=== PATIENT | male | born 1980 | race Caucasian/White ===

== ENCOUNTER 2017-04-10 08:48 | Outpatient (CLI) | payer OTHER ==
--- NOTE | 2017-04-10 16:22 | MRI Report ---
EXAM: MRI THORACIC SPINE WITHOUT CONTRAST EXAM DATE: 04/10/2017 10:27 AM. CLINICAL HISTORY: Chronic neck and upper back pain. Right-sided thoracic pain. COMPARISONS: MRI cervical spine same day. TECHNIQUE: Multiplanar, multisequence T1-weighted and fluid-sensitive sequences of the thoracic spine from C7 to L1 without contrast. Other: None. FINDINGS: The ascending thoracic aorta is prominent and measures up to 4 cm. No suspicious marrow replacement is present in the thoracic vertebral bodies. No abnormal signal is s een in the thoracic spinal cord. No focal posterior disk protrusions are present in the thoracic spin e. Posterior bulging of the annulus is present from T8 through T12. At T12-L1 there is a minimal subligamentous central disk protrusion. No central canal or foraminal stenosis. Degenerative Schmorl's nodes formation is seen from T6 through T12. No posterior interspinous ligament edema is present. IMPRESSION: 1. A minimal subligamentous central disk protrusion is seen at T12-L1. 2. Multilevel Schmorl's node formation in the mid and lower thoracic spine raise the possibility of S cheuermann's disease. 3. No central canal or foraminal stenosis is present in the thoracic spine. 4. The ascending thoracic aorta is at the upper limits of normal in size. Dedicated MRA of the thorac ic aorta may be of value [facility] Referring Provider Line: [phone] SITE ID: [id number]
--- NOTE | 2017-04-10 16:22 | MRI Report ---
EXAM: MRI CERVICAL SPINE WITHOUT CONTRAST EXAM DATE: 04/10/2017 10:01 AM. CLINICAL HISTORY: Chronic neck and upper back pain. Neck stiffness. Some numbness and tingling. COMPARISONS: MRI thoracic spine from today. TECHNIQUE: Multiplanar, multisequence T1-weighted and fluid-sensitive sequences of the cervical spine without contrast. Other: None. FINDINGS: On the last image of the study there is a 4-5 mm short axis soft tissue nodule incompletely visualize d anterior to the longus colli muscle on the right in the retropharyngeal fat. This could reflect a b orderline retropharyngeal lymph node. No suspicious marrow replacement is identified in the cervical vertebral bodies. No abnormal signal i s present in the cervical spinal cord. Slight gentle reversal of the normal cervical lordosis is present centered over C4. No posterior interspinous ligament edema is present in the cervical spine. Minimal uncovertebral joint spurring is seen at C5-C6. IMPRESSION: 1. No focal posterior disk protrusions are present. 2. Minimal uncovertebral joint spurring at C5-C6. 3. No abnormal signal is present in the cervical spinal cord. [facility] Referring Provider Line: [phone] SITE ID: [id number]
== END 2017-04-10 08:49 | disposition home or self-care (01) ==
LOC: DI 08:48
PROVIDERS: ATTEND General Practice
DX: M51.25 Other intervertebral disc displacement, thoracolumbar region (principal); M51.44 Schmorl's nodes, thoracic region
CPT/HCPCS: 72141; 72146

== ENCOUNTER 2019-11-17 08:47 | Day surgery (SDC) | payer OTHER ==
[2019-11-17] MEDS ORDERED: KETOROLAC 30 MG/ML VIAL IVP ONE (08:48)
[2019-11-17] MEDS ORDERED: fentaNYL 100 MCG/2 ML VIAL IVP ONE (08:48)
[2019-11-17] MEDS ORDERED: PROPOFOL 200 MG/20 ML VIAL IVP ONE (08:48)
[2019-11-17] MEDS ORDERED: LIDOCAINE-MPF 2% 5 ML VIAL IM ONE (08:48)
[2019-11-17] MEDS ORDERED: ONDANSETRON 4 MG/2 ML VIAL IVP ONE (08:48)
[2019-11-17] MEDS ORDERED: MIDAZOLAM 2 MG/2 ML VIAL IVP ONE (08:48)
[2019-11-17] MEDS ORDERED: DEXAMETHASONE 4 MG/ML VIAL IVP ONE (08:48)
[2019-11-17] MEDS ORDERED: LACTATED RINGERS 1,000 ML IV ONE (08:53)
[2019-11-17] MEDS ORDERED: CEFAZOLIN SODIUM IN 0.9 % NACL 2 GM/100 ML BAG IV ONE (08:57)
--- NOTE | 2019-11-17 09:21 | ANESTHESIA ---
Pre-Anesthesia VS, & Labs - Diagnosis left 5th metacarpal fracture - Procedure left 5th metacarpal fracture perc pinning vs ORIF Vital Signs: Temp Pulse Resp BP Pulse Ox 36.2 C L 66 18 131/94 H 98 11/17/19 09:03 11/17/19 09:03 11/17/19 09:03 11/17/19 09:03 11/17/19 09:03 Height 6 ft Weight (kg) 90.72 kg - NPO >8 hours Home Medications and Allergies Home Medications: Ambulatory Orders Multivitamin 1 each PO 11/13/19 Multivitamin 1 each PO 11/13/19 Allergies/Adverse Reactions: Allergies Allergy/AdvReac Type Severity Reaction Status Date / Time No Known Drug Allergies Allergy Verified 11/13/19 08:06 Anes History & Medical History - Anesthetic History Family history of Anesthesia Complications: Denies Family history of Malignant Hyperthermia: Denies - Medical History Cardiovascular: reports: None Pulmonary: reports: None Gastrointestinal: reports: None Urinary: reports: None Neuro: reports: None Musculoskeletal: reports: None Endocrine/Autoimmune: reports: None Blood Disorders: reports: None Skin: reports: None Smoking Status: Never smoker Psychosocial: reports: No issues indicated Exam General: Alert, Oriented x3, Cooperative, No acute distress Dental: WNL Mouth Openin Fingerbreadth Neck Mobility: Normal Mallampati classification: I Thyromental Distance: greater than 6 cm Respiratory: Lungs clear, Normal breath sounds, No respiratory distress, No accessory muscle use Cardiovascular: Regular rate, Normal S1, Normal S2, No murmurs Mental/Cognitive Status: Alert/Oriented X3, Normal for patient Plan Anesthesia Type: General Consent for Procedure(s) Verified and Reviewed: Yes Code Status: Attempt Resuscitation ASA classification: 1-Healthy patient Is this case an emergency?: No
[2019-11-17] MEDS ORDERED: BUPIVACAINE 0.25% PF 30 ML VIAL ONE (09:51)
[2019-11-17] MEDS ORDERED: NALOXONE 0.4 MG/ML VIAL IVP PRN (10:37)
[2019-11-17] MEDS ORDERED: HYDROmorphone 0.5 MG/0.5 ML SYRINGE IVP PRN (10:37)
[2019-11-17] MEDS ORDERED: fentaNYL 100 MCG/2 ML VIAL IVP PRN (10:37)
[2019-11-17] MEDS ORDERED: ATROPINE ABBOJECT 1 MG/10 ML SYRINGE IVP PRN (10:37)
[2019-11-17] MEDS ORDERED: ONDANSETRON 4 MG/2 ML VIAL IVP PRN ×2 (10:37→11:54)
[2019-11-17] MEDS ORDERED: LACTATED RINGERS 1,000 ML IV SCH (11:00)
[2019-11-17] MEDS ORDERED: BUPIVACAINE 0.25% PF 30 ML VIAL SUBQ ONE (11:17)
[2019-11-17] MEDS ORDERED: oxyCODONE 5 MG TABLET PO PRN (11:54)
--- NOTE | 2019-11-17 12:10 | OPERATIVE REPORT ---
Operative Report - General Procedure Date: 11/17/19 - Other Other Information/Narrative: Date of Procedure: 17 November 2019 Planned Procedure: Left fifth metacarpal closed reduction and percutaneous pinning versus open reduction and internal fixation Pre-op diagnosis: Left fifth metacarpal neck fracture Procedure performed: Left fifth metacarpal closed reduction and percutaneous pinning Post-op diagnosis: Left fifth metacarpal neck fracture Primary Surgeon: ABI GREER Secondary Surgeon: RAYRAY PRAJAPATI Anesthesia: General LMA EBL: 5 ml Tourniquet: Not used Specimen(s) Information: None Complication(s): None Condition: Stable to recovery Indications for Surgery: The patient is a 39-year-old right hand dominant male with a left fifth metacarpal neck fracture sustained while catching his toddler from falling near was a rodriguez. He reports hyper abduction of the small finger with immediate pain and swelling. Radiographs demonstrated an oblique fracture of the fifth metacarpal neck with approximately 8 to 10 mm of shortening. Based on the fracture shortening, we discussed treatment options with a recommendation for operative reduction and fixation. We discussed that any form of closed reduction without internal fixation or percutaneous pinning would likely settle back to the current orientation of the fracture fragments, as I be unable to hold the reduction using a cast or splint. We discussed the possible need to open the fracture should the fracture fail to reduce. Risks of surgery were discussed to include bleeding, infection, postoperative stiffness, implant complications, pin tract infections, loss of reduction, need for further procedures procedures, damage to nerves, vessels, tendons, ligaments, bone and cartilage and anesthesia complications to include medication side effects and allergic reactions and even . After discussion, he wished to proceed. Findings: Left fifth metacarpal neck fracture Descriptions of Procedure: The patient was met in the Preoperative Holding Area, at which time preoperative paperwork was confirmed. The left hand and elbow and splint was signed. The patient was then brought to Main Operating Room, placed supine on the Operating Room table, at which time pre procedure timeout was conducted to confirm correct patient, correct extremity and correct procedure and also to confirm presence and sterility of all required equipment and to confirm that antibiotics were being administered in the form of 2g of intravenous Ancef. After this was confirmed, general anesthesia was induced. The operative extremity was then prepped and draped over a hand table in the normal sterile fashion after a well- padded tourniquet was placed on the proximal arm. A final timeout was conducted to confirm the correct patient, correct extremity and correct procedure and to confirm that antibiotics had been administered within 30 minutes of incision time. The fracture was reduced under fluoroscopic guidance with a combination of longitudinal traction and lateral pressure on the fifth metacarpal shaft. Zack pite these maneuvers, we are unable to get appropriate goodwin in of the fracture fragments. The decision was made to make a small transverse incision overlying the fracture in the distal palmar crease, the incision was made, bluntly dissected using mosquito hemostats to the level of the flexor tendons, and then a [place] elevator was introduced to assist with reduction. The combination of [place], longitudinal traction, and pressure on the metacarpal shaft enabled satisfactory reduction, this was held in place with a 0.45 inch K wire placed from dorsal ulnar to volar radial. A second pin was placed in similar fashion. Reduction was then verified under multiplanar fluoroscopy. Although the reduction was held by these 2 wires, I was concerned that the second wire placed did not have excellent purchase, and then a third wire was placed from proximal to distal, and dorsal ulnar to volar radial, crossing the other 2 wires. Fracture reduction and alignment was confirmed again using multiplanar fluoroscopy, and once satisfied, the wires were cut at the level of the skin to bury them. Final fluoroscopic images were obtained. The palmar incision was irrigated and closed with a single 3-0 nylon horizontal mattress suture. 20 mL of quarter percent Marcaine plain was injected palmarly and dorsally around the fracture site for postoperative analgesia. The incision and K wire holes were c overed with Xeroform, followed by 4 x 4 gauze and web roll, and then a plaster ulnar gutter splint was placed in intrinsic plus position. The drapes were taken down, the patient was then awakened from general anesthesia without complication, brought to the Post Anesthesia Care for further recovery. Postoperative Plan: 1. The patient will be discharged from the Same Day Surgery Unit when discharge criteria are met. 2. The patient will remain in a splint for approximately 14 days until follow- up, this will be removed in clinic to facilitate early range of motion. 3. Expect return to full duty in 12-16 weeks 4. Discharge precautions were provided in both verbal and written form to the patient
[2019-11-17] MEDS ORDERED: oxyCODONE 5 MG TABLET ONE (12:31)
[2019-11-17 12:42] VITALS: BP 110/83
--- NOTE | 2019-11-17 15:19 | ANESTHESIA POST OP EVALUATION ---
Anesthesia Post Eval - Post Anesthesia Eval Vitals: Last Vital Signs Temp 36.1 C L 11/17/19 12:41 Pulse 70 11/17/19 12:41 Resp 15 11/17/19 12:41 BP 110/83 H 11/17/19 12:41 Pulse Ox 100 11/17/19 12:41 CV Function Including HR & BP: positive: Stable Pain Control: positive: Satisfactory Nausea & Vomiting: positive: Negative Mental Status: positive: Baseline Respiratory Status: Airway Patent Hydration Status: Satisfactory Anesthesia Complications: positive: None
== END 2019-11-17 08:48 | disposition home or self-care (01) ==
LOC: SDS 08:47
PROVIDERS: ATTEND Orthopaedic Surgery
DX: S62.337A Displaced fracture of neck of fifth metacarpal bone, left hand, initial encounter for closed fracture (principal); X50.0XXA Overexertion from strenuous movement or load, initial encounter; Y92.828 Other wilderness area as the place of occurrence of the external cause; Y99.8 Other external cause status

== ENCOUNTER 2019-12-24 20:33 | Outpatient (CLI) | payer OTHER | END 2019-12-24 20:34 | disposition home or self-care (01) | LOC: SC 20:33 | PROVIDERS: ATTEND Nurse Practitioner Family | DX: G47.8 Other sleep disorders (principal); G47.61 Periodic limb movement disorder | CPT/HCPCS: 95810 ==

== ENCOUNTER 2020-01-05 13:13 | Outpatient (CLI) | payer OTHER ==
--- NOTE | 2020-01-05 13:50 | SLEEP CARE CONSULTATION ---
Information from patient questionnaire entered by Elisabeth Michel. I have reviewed and concur with the information entered by Elisabeth Michel. This document represents the service I personally performed and the decisions made by , Argenis Vazquez ARNP. History of Present Illness Service Date and Time: 01/05/2020 1313 Initial [place] Sleepiness Scale score: 16 (in 2020) Current [place] Sleepiness Scale score: 12 Additional HPI information: MAURILIO MCKEON returns for follow up and results of the recently performed polysomnography. I explained the pathophysiology behind obstructive sleep apnea. We then spent quite a bit of time discussing different treatment options. For mild obstructive sleep apnea, surgery and oral appliance are alternatives to nasal CPAP therapy but in moderate or severe cases, nasal CPAP is the most effective and reliable treatment. Because apnea is primarily in supine position, then positional management therapy could be effective. Methods discussed such as positioning with pillows, using a T-shirt with tennis balls in the back, and shown commercial products that have a pillow format on back to prevent supine sleep. I reviewed the impact of weight changes on sleep apnea and strongly recommended losing weight. After some discussion, the patient opted to go with an oral appliance. Patient counseled not drink alcohol less than 4 hours before bedtime as it can increase snoring and apnea. Patient was cautioned about risks of drowsy driving until sleepiness symptoms resolve. Sleep Study - Results Type of Sleep Study: Polysomnography Prior sleep studies: No Polysomnography/Home Sleep Study results: IMPRESSION: The quality of the study is good. The patient had normal sleep efficiency. Except for mild sleep fragmentation, the sleep architecture was normal as well.. Respiratory monitoring showed some evidence of sleepdisordered breathing (AHI = 4.5 and RDI = 7.3) but not hypoxia (loren oxygen saturation of 92%). The respiratory events occurred almost exclusively during supine sleep (supine AHI = 6.8; non- supine = 0.00). Snore was moderate in intensity. There was mild periodic leg movement of sleep contributing to the sleep fragmentation. Cardiac rhythm was normal sinus rhythm without significant arrhythmia. No abnormal behavior (parasomnia) observed during the night. Allergies and Home Medications Drug allergies reviewed: Yes (NKDA) Home medication list reviewed: Yes (no changes) Review of Systems Review of systems same as previous: Yes (no changes) Physical Exam Heart Rate: 67 O2 Saturation: 98 Height: 6 ft Weight: 207 lb Body Mass Index: 28.0 BMI Classification: Overweight Impression and Plan 1. Upper Airway Resistance Syndrome, AHI 4.5 and RDI 7.3, with lowest oxygen saturation of 92%. This is the possible cause of the patients symptoms of unre freshed sleep, and excessive daytime sleepiness. Positive pressure therapy could benefit his overall health and reduce risk for cardiovascular events or cerebrovascular events. After some discussion, the patient would like to go with the oral appliance but is unsure about them covering his appliance. AAS non PAP treatment patient education reviewed and given to patient with list of accredited dentists and one non-accredited dentist in [facility] area to call for a consult. A prescription was given to start process. Patient advised to check insurance to see if oral appliance is covered. I will have patient follow up in 3 months to check effectiveness of treatment. If reduction of symptoms and comfortable with treatment, a polysomnography will be ordered using the oral appliance to check efficacy of treatment. After talking to our discharge federal appellate law clerk patient decided he would like to go with the CPAP therapy after all because of concern for insurance covering dental appliance. I will start him on 4-15 cm H2O and a prescription written and will be sent off to the DME of his choice. I will have him follow up in about a month after receiving his CPAP machine to evaluate for effectiveness and compliance. Compliance parameters reviewed with patient during the visit during explanation of CPAP therapy. 2. Periodic limb movement, mild, that did affect the fragmentation of the patients sleep. Periodic limb movement of sleep (PLMS) is characterized by episodes of repetitive limb movements that occur during sleep and usually involve the lower limbs. The etiology is unknown but can be associated with restless leg syndrome (RLS), neuropathy, spinal cord diseases, kidney disease, rheumatological disorders, narcolepsy, obstructive sleep apnea, and REM sleep behavior disorder. Other factors that can increase PLMS and/or RLS are heredity and iron deficiency as reflected by a low serum ferritin level below 50 to 75mcg / L. Several medications can precipitate or aggravate PLMS such as selective serotonin re-uptake inhibitor antidepressants, tricyclic antidepressants, lithium, and dopamine receptor antagonists with the exception of bupropion. Caffeine can also aggravate PLMS and should be avoided. Sleep hygiene methods can also improve sleep as well as lifestyle changes such as regular exercise. Patient was advised that no treatment is needed at this time. If symptoms increase, then further evaluation is indicated. * Start autoCPAP therapy at 4-15 cm H2O * Patient to look into insurance coverage for oral appliance therapy and contact us if he can change to this therapy. * Attempt to lose weight. * Avoid alcohol consumption near bedtime. * Avoid supine sleep until using CPAP. * The patient is again cautioned about driving until sleepiness completely re solves. * Return one month after CPAP obtained. I will assess response to therapy and compliance at that time. Visit Type: In Office Time Spent with Patient (minutes): 25 Provider Statement: I spent 100% of the Face to Face Visit with the patient with greater than 50% spent counseling the patient and coordination of care.
== END 2020-01-05 13:14 | disposition home or self-care (01) ==
LOC: SC 13:13
PROVIDERS: ATTEND Nurse Practitioner Family
DX: G47.8 Other sleep disorders (principal); G47.61 Periodic limb movement disorder; E66.3 Overweight; Z68.28 Body mass index [BMI] 28.0-28.9, adult
CPT/HCPCS: 99212; 99213

== ENCOUNTER 2020-03-03 08:02 | Outpatient (CLI) | payer OTHER ==
--- NOTE | 2020-03-03 08:43 | SLEEP CARE CONSULTATION ---
Information from patient questionnaire entered by Elisabeth Michel. I have reviewed and concur with the information entered by Elisabeth Michel. This document represents the service I personally performed and the decisions made by , Argenis Vazquez ARNP. History of Present Illness Service Date and Time: 03/03/2020 0802 Previous diagnosis: Other (RDI) AHI: 7.3 (in 2019) Reason for follow up: first compliance Equipment type: CPAP Equipment obtained from: [employer] (no supplies yet) Mask style: Nasal Backup mask available: No (keep old mask when replaced for backup) Last cushion change: over month Prior sleep studies: Yes Year and Where: 2019 - [facility] Type of Sleep Study: Polysomnography HPI additional information: MAURILIO MCKEON was diagnosed to have mild, AHI 4.5 with RDI 7.3, obstructive sleep apnea-hypopnea syndrome and returned today for CPAP therapy first compliance follow-up. CPAP Compliance Data - Data Reviewed with Patient Average duration of nightly device use: 7 hr 18 min Compliance rate %: 97 Current pressure setting (cmH2O): 4-15 (median 5.4 cm H2O, 95% 7.1 cm H2O, max 7.8 cm H2O) Humidity settin Average residual AHI: 1.6 Subjective Patient concerns: reports: air blowing in eyes (only when not laying on my back, just positional). denies: aerophagia, mask discomfort, mask leak noise, condensation in mask/hose, nasal congestion, dry mouth, nose, throat, epistaxis, other Observed to snore while using device: No Current pressure setting perceived as: comfortable On therapy, patient: reports: sleeping better, awakening more refreshed, being more awake and alert during the day, more rested overall, other (still has waking up due to pain in shoulder). denies: drowsiness while driving Initial [place] Sleepiness Scale score: 16 (in 2020) Current [place] Sleepiness Scale score: 8 Allergies and Home Medications Drug allergies reviewed: Yes (NKDA) Home medication list reviewed: Yes (no changes) Review of Systems Review of systems same as previous: Yes (no changes) Physical Exam Heart Rate: 66 O2 Saturation: 99 Height: 6 ft Weight: 206 lb Body Mass Index: 27.9 BMI Classification: Overweight Impression and Plan 1. Obstructive Sleep Apnea-Hypopnea Syndrome, mild, with good treatment compliance and good apnea control. On CPAP therapy, the patient has better sleep quality and is more rested overall. Patient has noted some air leaking into eyes with position changes. He is able to adjust it quickly without problems. Mask leaks predominately from when patient sleeps on their side can be reduced by using a CPAP pillow. A CPAP pillow sample was shown. This and other styles can be purchased online. Patient's apnea severity and rationale for treatment to reduce apnea, improve sleep quality and reduce cardiovascular and cerebro vascular events was reviewed. * Change auto CPAP pressure to 6-8 cmH2O * Notify me if snoring with mask or feeling that the pressure is too much or too little * Attempt to lose weight * Call this office if any problems using CPAP * Return for follow up in 1-2 months, or sooner if concerns arise Counseling Topics: Spare mask, Weight loss health impact Visit Type: In Office Time Spent with Patient (minutes): 22 Provider Statement: I spent 100% of the Face to Face Visit with the patient with greater than 50% spent counseling the patient and coordination of care.
== END 2020-03-03 08:03 | disposition home or self-care (01) ==
LOC: SC 08:02
PROVIDERS: ATTEND Nurse Practitioner Family
DX: G47.33 Obstructive sleep apnea (adult) (pediatric) (principal); E66.3 Overweight; Z68.27 Body mass index [BMI] 27.0-27.9, adult
CPT/HCPCS: 99212; 99213

== ENCOUNTER 2020-04-01 07:55 | Outpatient (CLI) | payer OTHER ==
--- NOTE | 2020-04-01 08:43 | SLEEP CARE CONSULTATION ---
Information from patient questionnaire entered by Elisabeth Michel. I have reviewed and concur with the information entered by Elisabeth Michel. This document represents the service I personally performed and the decisions made by , Argenis Vazquez ARNP. History of Present Illness Service Date and Time: 04/01/2020 0755 Previous diagnosis: Other (RDI ) AHI: 7.3 (in 2019) Reason for follow up: one month (with pressure change) Equipment type: CPAP Equipment obtained from: [employer] Mask style: Nasal Backup mask available: Yes (other mask) Last cushion change: within the week Prior sleep studies: Yes Year and Where: 2019 - [facility] Type of Sleep Study: Polysomnography HPI additional information: MAURILIO MCKEON was diagnosed to have mild, AHI 7.3 (RDI), obstructive sleep apnea-hypopnea syndrome and returned today for CPAP therapy one month pressure change follow-up. CPAP Compliance Data - Data Reviewed with Patient Average duration of nightly device use: 6 hr 38 min Compliance rate %: 83 Current pressure setting (cmH2O): 6-8 Humidity settin Average residual AHI: 2.1 Average large leak: 8.0 L/min Subjective Missed days of use due to: reports: other (sleepless baby) Patient concerns: reports: air blowing in eyes, mask leak noise (mask moving and not sealing well). denies: aerophagia, mask discomfort, condensation in mask/hose, nasal congestion, dry mouth, nose, throat, epistaxis, other Observed to snore while using device: No Current pressure setting perceived as: comfortable On therapy, patient: reports: sleeping better, awakening more refreshed, being more awake and alert during the day, more rested overall. denies: drowsiness while driving Initial [place] Sleepiness Scale score: 16 (in 2020) Current [place] Sleepiness Scale score: 11 Allergies and Home Medications Drug allergies reviewed: Yes (NKDA) Home medication list reviewed: Yes (no changes) Review of Systems Review of systems same as previous: Yes (no changes) Physical Exam Blood Pressure: 121/78 Cuff size: long Heart Rate: 64 O2 Saturation: 98 Height: 6 ft Weight: 216 lb Body Mass Index: 29.2 BMI Classification: Overweight Impression and Plan 1. Obstructive Sleep Apnea-Hypopnea Syndrome, mild, with good treatment compliance and good apnea control. On CPAP therapy, the patient has better sleep quality and is more rested overall. We are making no changes with his pressure today. He is having some issue with mask moving and getting air leak noises and in eyes. He would like to try a nasal pillows mask to see if this would move less with less leaking. I will write a script to try a nasal pillows mask and he will talk to his DME about getting one to try. Patient also needs a MWT for his job in the [employer]. I have already ordered this test and we are waiting on authorization from the insurance company. He will be notified once we have obtain the authorization to schedule the test. I will follow up with him after the test is completed. Patient's apnea severity and rationale for treatment to reduce apnea, improve sleep quality and reduce cardiovascular and cerebrovas cular events was reviewed. * Continue auto CPAP pressure at 6-8 cmH2O * Try nasal pillows mask * Notify me if snoring with mask or feeling that the pressure is too much or too little * Attempt to lose weight * Call this office if any problems using CPAP * Return for follow up after MWT, or sooner if concerns arise Counseling Topics: Spare mask, Weight loss health impact Visit Type: In Office Time Spent with Patient (minutes): 17 Provider Statement: I spent 100% of the Face to Face Visit with the patient with greater than 50% spent counseling the patient and coordination of care.
[2020-04-01 08:49] VITALS: BP 121/78
== END 2020-04-01 07:56 | disposition home or self-care (01) ==
LOC: SC 07:55
PROVIDERS: ATTEND Nurse Practitioner Family
DX: G47.33 Obstructive sleep apnea (adult) (pediatric) (principal); E66.3 Overweight; Z68.29 Body mass index [BMI] 29.0-29.9, adult
CPT/HCPCS: 99212; 99213

== ENCOUNTER 2020-04-28 06:47 | Outpatient (CLI) | payer OTHER | END 2020-04-28 06:48 | disposition home or self-care (01) | LOC: SC 06:47 | PROVIDERS: ATTEND Nurse Practitioner Family | DX: G47.33 Obstructive sleep apnea (adult) (pediatric) (principal) | CPT/HCPCS: 95805 ==

== ENCOUNTER 2020-04-28 08:00 | Outpatient (CLI) | payer OTHER ==
[2020-04-28 12:57] LABS: MUDS CUTOFF CONCENTRATIONS CUTOFF CONC BELOW:
[2020-04-28 13:10] LABS: AMPHETAMINE SCREEN,URINE NEGATIVE (NEGATIVE); BENZODIAZEPINES SCREEN, URINE NEGATIVE (NEGATIVE); COCAINE SCREEN URINE NEGATIVE (NEGATIVE); METHADONE SCREEN, URINE NEGATIVE (NEGATIVE); METHAMPHETAMINES SCREEN, URINE NEGATIVE (NEGATIVE); OPIATE SCREEN, URINE NEGATIVE (NEGATIVE); TRICYCLIC ANTIDEPRESSANT,URINE NEGATIVE (NEGATIVE)
[2020-04-28 13:11] LABS: OXYCODONE SCREEN, URINE NEGATIVE (NEGATIVE); PROPOXYPHENE SCREEN, URINE NEGATIVE (NEGATIVE)
== END 2020-04-28 23:58 | disposition home or self-care (01) ==
LOC: LAB.R 08:00
PROVIDERS: ATTEND Nurse Practitioner Family
DX: R41.82 Altered mental status, unspecified (principal)
CPT/HCPCS: 80306

== ENCOUNTER 2020-05-09 12:33 | Outpatient (CLI) | payer OTHER ==
--- NOTE | 2020-05-09 13:15 | SLEEP CARE CONSULTATION ---
Information from patient questionnaire entered by Elisabeth Michel. I have reviewed and concur with the information entered by Elisabeth Michel. This document represents the service I personally performed and the decisions made by me, Shannen Jacinto MD, [facility]. History of Present Illness Service Date and Time: 05/09/2020 1233 Previous diagnosis: Other (RDI ) AHI: 7.3 (in 2019) Reason for follow up: other (MWT ) Equipment type: CPAP Equipment obtained from: [employer] Mask style: Nasal Prior sleep studies: Yes Year and Where: 2019 - [facility] Type of Sleep Study: Polysomnography HPI additional information: HPI: Mr. Su returned for follow up of the maintenance of wakefulness test (MWT) he had on 04/28/2020. The test showed that he was awake throughout the four 40-minute sessions. Therefore, he does not appear to have any residual excessive daytime sleepiness. The patient was informed of these findings. I explained to him that the maintenance of wakefulness test (MWT) was normal. His CPAP compliance continues to show good treatment compliance with him using the device 27 out of the past 30 nights, averaging 6.4 hours a night. The > 4 hour compliance rate for the past 30 days is 77%. Sleep Study - Results Type of Sleep Study: Polysomnography (MWT) CPAP Compliance Data - Data Reviewed with Patient Average duration of nightly device use: 6 hr 27 min Compliance rate %: 77 Current pressure setting (cmH2O): 6-8 Average residual AHI: 1.7 Subjective Missed days of use due to: reports: mask issues, illness Patient concerns: reports: air blowing in eyes, mask leak noise Initial [place] Sleepiness Scale score: 16 (in 2019) Current [place] Sleepiness Scale score: 10 Allergies and Home Medications Drug allergies reviewed: Yes Home medication list reviewed: Yes Review of Systems Review of systems same as previous: Yes Physical Exam Vital signs obtained and entered by: To minimize the risk of COVID-19 exposure, detailed exam was not performed. Height: 6 ft Weight: 200 lb Body Mass Index: 27.1 BMI Classification: Overweight Impression and Plan IMPRESSION: 1. Upper Airway Resistance Syndrome (ICD-10 G47.8), mild, with no residual excessive daytime sleepiness on CPAP therapy. No further evaluation is necessary. PLAN: 1. Continue with CPAP set at 6 8 cmH2O. 2. Return for a follow up before me relocates away from [facility]. Visit Type: In Office Time Spent with Patient (minutes): 15 Provider Statement: I spent 100% of the Face to Face Visit with the patient with greater than 50% spent counseling the patient and coordination of care.
== END 2020-05-09 12:34 | disposition home or self-care (01) ==
LOC: SC 12:33
PROVIDERS: ATTEND Internal Medicine Pulmonary Disease
DX: G47.8 Other sleep disorders (principal); G47.33 Obstructive sleep apnea (adult) (pediatric); E66.3 Overweight; Z68.27 Body mass index [BMI] 27.0-27.9, adult
CPT/HCPCS: 99212

== ENCOUNTER 2020-05-16 13:00 | Outpatient (CLI) | payer OTHER ==
[2020-05-16] MEDS ORDERED: GADOBUTROL 7.5 MMOL/7.5 ML VIAL ONE ×2 (13:29→13:56)
[2020-05-16] MEDS ORDERED: BUFFERED LIDOCAINE 10 ML SYRINGE ONE (13:29)
[2020-05-16] MEDS ORDERED: BUFFERED LIDOCAINE 10 ML SYRINGE IU ONE (14:48)
[2020-05-16] MEDS ORDERED: iohexoL-240 10 ML VIAL IVP ONE (14:50)
[2020-05-16] MEDS ORDERED: GADOBUTROL 7.5 MMOL/7.5 ML VIAL IVP ONE (14:51)
--- NOTE | 2020-05-16 16:24 | XRAY Report ---
PROCEDURE: Arthrogram Needle Placement INDICATIONS: PAIN IN LT SHOULDER CONTRAST: CONTRAST: [id number] FLUOROSCOPY TIME: FLUORO TIME: 19 sec and NUMBER IMAGES: 4 TECHNIQUE: The indications, alternatives, benefits, risks, and complications of the procedure were explained to the patient. Written informed consent was obtained and placed in the chart. The shoulder was examin ed fluoroscopically and a site for needle placement chosen for entry into the glenohumeral joint from an anterior approach. The skin was prepped and draped in the usual fashion, and 1% lidocaine infilt rated from skin down to joint capsule. A spinal needle was inserted into the glenohumeral joint, and a small amount of iodinated contrast media injected to confirm intra-articular placement of the need le tip. This was followed by approximately 12 mL dilute solution of a gadolinium containing MR contr ast agent. The needle was removed and a dressing was applied. The patient was given postprocedural instructions and sent to the MR suite for MR imaging. FINDINGS: A single fluoroscopic spot image demonstrates intra-articular location of injected iodinated contrast . IMPRESSION: Successful fluoroscopically guided administration of dilute Gadolinium solution into the shoulder melanie nt for MR arthrogram. Reviewed by: Heidi Robert MD on 05/16/2020 4:22 PM PST Approved by: Heidi Robert MD on 05/16/2020 4:22 PM PST Station ID: [id number]
--- NOTE | 2020-05-16 18:32 | MRI Report ---
PROCEDURE: Arthrogram Shoulder LT INDICATIONS: PAIN IN LT SHOULDER CONTRAST: 12 mL of diluted intra-articular gadolinium contrast. TECHNIQUE: After the administration of 12 mL of dilute intra-articular Gadolinium contrast, oblique coronal T1 a nd T2 spin echo with fat saturation, oblique sagittal T1 spin echo with and without fat saturation, o blique sagittal T2 fast spin echo with fat saturation, axial T1 spin echo with fat saturation through the shoulder. COMPARISON: None. FINDINGS: Image quality: Excellent. Rotator cuff: Tendinosis and low-grade articular and bursal surface partial-thickness tear involving distal supraspinatus at its insertion on humeral head is seen extending to musculotendinous junction. The infraspinatus, and subscapularis tendons appear intact throughout. No rotator cuff muscle atrop hy on sagittal images. Bones and bursae: No bone marrow contusions or fractures. Mild acromioclavicular joint osteoarthriti c changes are seen with downward osteophyte formation depressing on musculotendinous junction of supr aspinatus.. The acromion demonstrates conventional anatomy, without an os acromiale. Capsule and soft tissues: The labrum and glenohumeral ligaments appear intact. The long head of the biceps tendon demonstrates normal location and morphology. The rotator interval appears normal, wit hout fibrosis. The coracohumeral ligament is of normal thickness. No intra-articular bodies. IMPRESSION: 1. Tendinosis and low-grade articular and bursal surface partial-thickness tear involving distal supr aspinatus extending to musculotendinous junction. No full-thickness rotator cuff tendon rupture. 2. Mild to moderate acromioclavicular joint osteoarthritis. 3. No evidence of focal labral tear. Reviewed by: Trever Canada MD on 05/16/2020 5:31 PM [place] Approved by: Trever Canada MD on 05/16/2020 5:31 PM [place] Station ID: [id number]
[2020-05-17] MEDS ORDERED: GADOBUTROL 10 MMOL/10 ML VIAL IVP ONE (22:04)
== END 2020-05-16 13:01 | disposition home or self-care (01) ==
LOC: DI 13:00
PROVIDERS: ATTEND Orthopaedic Surgery
DX: M75.112 Incomplete rotator cuff tear or rupture of left shoulder, not specified as traumatic (principal); M19.012 Primary osteoarthritis, left shoulder
CPT/HCPCS: 23350; 73222; 77002; A9585; Q9966

== ENCOUNTER 2020-07-01 06:26 | Day surgery (SDC) | payer OTHER ==
[2020-07-01] MEDS ORDERED: cefTRIAXone 2 GM VIAL ONE (06:29)
[2020-07-01] MEDS ORDERED: SODIUM CHLORIDE 0.9% 1,000 ML IV ONE (06:30)
[2020-07-01] MEDS ORDERED: LACTATED RINGERS 1,000 ML IV ONE ×2 (06:38→09:29)
[2020-07-01] MEDS ORDERED: ROPIVACAINE 0.5% PF 20 ML AMPULE ONE (07:02)
[2020-07-01] MEDS ORDERED: PROPOFOL 200 MG/20 ML VIAL IVP ONE (07:02)
[2020-07-01] MEDS ORDERED: LIDOCAINE-PF 2% 10 ML AMP SUBQ ONE (07:02)
[2020-07-01] MEDS ORDERED: ROCURONIUM 50 MG/5 ML VIAL ONE (07:03)
[2020-07-01] MEDS ORDERED: KETOROLAC 30 MG/ML VIAL ONE (07:03)
[2020-07-01] MEDS ORDERED: DEXMEDETOMIDINE 200 MCG/2 ML VIAL ONE (07:03)
[2020-07-01] MEDS ORDERED: ONDANSETRON 4 MG/2 ML VIAL ONE (07:03)
[2020-07-01] MEDS ORDERED: DEXAMETHASONE 4 MG/ML VIAL ONE (07:03)
[2020-07-01] MEDS ORDERED: SUGAMMADEX 200 MG/2 ML VIAL IVP ONE (07:03)
[2020-07-01] MEDS ORDERED: fentaNYL 100 MCG/2 ML VIAL ONE (07:20)
[2020-07-01] MEDS ORDERED: MIDAZOLAM 2 MG/2 ML VIAL ONE (07:20)
[2020-07-01] MEDS ORDERED: EPINEPHrine 1 MG/ML AMP ONE (07:22)
--- NOTE | 2020-07-01 07:25 | ANESTHESIA ---
Pre-Anesthesia VS, & Labs - Diagnosis Left Shoulder Pain - Procedure Left Shoulder Arthroscopy/Biceps/SLAP Vital Signs: Temp Pulse Resp BP Pulse Ox 36.2 C L 65 16 125/89 H 96 07/01/20 06:39 07/01/20 06:39 07/01/20 06:39 07/01/20 06:39 07/01/20 06:39 Height: 6 ft Weight (kg): 99.4 kg Body Mass Index: 29.7 BMI Classification: Overweight Home Medications and Allergies Home Medications: Ambulatory Orders No Known Home Medications 06/23/20 No Known Home Medications 06/23/20 Allergies/Adverse Reactions: Allergies Allergy/AdvReac Type Severity Reaction Status Date / Time No Known Drug Allergies Allergy Verified 11/13/19 08:06 Anes History & Medical History - Medical History Cardiovascular: reports: None Pulmonary: reports: Sleep apnea, CPAP use Gastrointestinal: reports: None Urinary: reports: None Neuro: reports: None Musculoskeletal: reports: Other Endocrine/Autoimmune: reports: None Blood Disorders: reports: None Skin: reports: None Smoking Status: Never smoker - Surgical History Orthopedic: reports: Other Exam General: Alert, Oriented x3, Cooperative, No acute distress Dental: WNL Mouth Openin Fingerbreadth Neck Mobility: Normal Mallampati classification: I Thyromental Distance: 4-6 cm Respiratory: Lungs clear, Normal breath sounds Cardiovascular: Regular rate Plan Anesthesia Type: General, Interscalene Block Regional Block: Per Surgeon's request for Post Op pain control Consent for Procedure(s) Verified and Reviewed: Yes Code Status: Attempt Resuscitation ASA classification: 1-Healthy patient Is this case an emergency?: No
[2020-07-01] MEDS ORDERED: ePHEDrine 50 MG/ML VIAL IVP PRN (08:13)
[2020-07-01] MEDS ORDERED: NALOXONE 0.4 MG/ML VIAL IVP PRN (08:13)
[2020-07-01] MEDS ORDERED: ATROPINE ABBOJECT 1 MG/10 ML SYRINGE IVP PRN (08:13)
[2020-07-01] MEDS ORDERED: fentaNYL 100 MCG/2 ML VIAL IVP PRN (08:13)
[2020-07-01] MEDS ORDERED: HYDROmorphone 0.5 MG/0.5 ML SYRINGE IVP PRN (08:13)
[2020-07-01] MEDS ORDERED: MORPHINE 2 MG/ML CARPUJECT IVP PRN (08:13)
[2020-07-01] MEDS ORDERED: METOCLOPRAMIDE 10 MG/2 ML VIAL IVP PRN (08:13)
[2020-07-01] MEDS ORDERED: ONDANSETRON 4 MG/2 ML VIAL IVP PRN ×2 (08:13→09:44)
[2020-07-01] MEDS ORDERED: EPINEPHrine 1 MG/ML AMP IR ONE (08:21)
[2020-07-01] MEDS ORDERED: BUPIVACAINE 0.25% PF 30 ML VIAL ONE (08:36)
[2020-07-01] MEDS ORDERED: LACTATED RINGERS 1,000 ML IV SCH (09:00)
[2020-07-01] MEDS ORDERED: oxyCODONE 5 MG TABLET PO PRN (09:44)
--- NOTE | 2020-07-01 09:52 | OPERATIVE REPORT ---
Operative Report - Other Other Information/Narrative: Date of Surgery: 01 July 2020 Pre-Op Diagnosis: Shoulder SLAP tear. Left shoulder subacromial bursitis and impingement Procedure: Left shoulder arthroscopy with SLAP debridement. Subacromial decompression Postop Diagnosis: Same Primary Surgeon: Lawrence Perales Secondary Surgeon: None Complications: None EBL: 5 cc IMPLANTS: None POSTOPERATIVE PLAN: 0-2 weeks-Sling at all times. Pendulum exercises 5 times per day. 2-6 weeks-Passive and active range of motion without limitations. 6-12 weeks-Gradually increase strengthening focusing on rotator cuff and scapular stabilizers per protocol. 16 weeks and beyond-Introduce dynamic activities. EXAMINATION UNDER ANESTHESIA: ROM: Full Anterior load and shift: Stable Posterior load and shift: Grade 1-2 laxity Inferior sulcus: Stable ARTHROSCOPIC FINDINGS: Rotator interval: Normal Biceps tendon & SLAP: There is no tear of the biceps tendon. A SLAP tear is seen. The SLAP tear extends posteriorly slightly. The biceps anchor shows some instability but cannot be pulled into the joint Subscapularis: Normal Rotator Cuff: Normal as viewed from inside the joint and the subacromial space HAGL: None Labrum: The SLAP tear extends posteriorly down into the 9 o'clock position but just beyond the edge of the labrum the capsule tissue is well attached. The labrum is not grossly unstable. Glenoid Cartilage: Normal Humeral Head Cartilage: Normal INDICATION FOR SURGERY: 39-year-old male with a long history of shoulder pain located laterally and posteriorly. He had 80% pain relief with a subacromial injection and this lasted for about 2 months. His pain returned and did not respond to physical therapy. Imaging was consistent for SLAP tear and bursitis. 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 Nonoperative managment failed to resolve symptoms. The risks, benefits, and alternatives were discussed. Risks included pain, bleeding, infection, damage to nearby structures, lack of symptom relief, implant complications, stiffness, need for further surgeries, DVT, PE, stroke, and even . He signed a written consent form. PROCEDURE IN DETAIL: The patient was met in the preoperative holding on the day of the procedure. Operative extremity was signed. Consent was verified. They desired to proceed. Regional anesthesia was obtained in the preoperative area. They were brought to the operating room and surrendered to anesthesia. Once general anesthesia was obtained they were placed in the lateral decubitus position with the operative side up. An axillary roll was placed and all bony prominences were well-padded. A surgical timeout was held to confirm the patient procedure, identity, procedure, laterality, allergies, images, and antibiotics. All were in agreement we proceeded. A standard diagnostic arthroscopy was performed utilizing posterior and anterosuperior portals. The anterosuperior portal was created under direct visualization and localized with a spinal needle. The 7 mm cannula was placed anteriorly. The findings of the diagnostic arthroscopy can be found above. I then used the shaver to debride the unstable portions of the superior labrum. I decided that the biceps tendon attachment was adequate. I moved the camera into the front of the joint and the shaver into the back and then better assessed the posterior labrum as well and found it to be stable although there w as a slight crack in the most superior fibers. I used a shaver to debride any unstable sections of the posterior labrum. SUBACROMIAL DECOMPRESSION: The instruments and cannula were then removed from the glenohumeral joint. The scope trocar was placed in the posterior portal and the acromion was felt. It was then inserted just under the acromion scraping along the bone until the CA ligament was felt. The scope trocar was then brought just lateral to the CA ligament and out the anterior incision. The cannula was then brought over the scope trocar arthroscope were inserted. The arthroscope was backed up until the shaver and arthroscope in the subacromial space. I then systemically debrided the bursa using a sucker shaver and radiofrequency ablation wand. A direct lateral incision was made and the bursectomy and decompression was completed through the lateral incision. All soft tissue was debrided from the underside of the acromion and the posterior edge of the CA ligament was lifted. Care was taken to keep the deltoid fascia intact. The rotator cuff was then evaluated and there was no tear. The shaver was used on bur mode to bur the underside of the acromion for 2 mm and removing all undulations in the acromion resulting in a smooth surface. I brought this all the way over to the AC joint and the thickened tissue near the joint was debrided to make sure the clavicle was not pressing down on the rotator cuff or had any osteophytes inferiorly. I cleared out the bursa anteriorly down towards the subscapularis, laterally, and posteriorly. Final images were taken The portal sites were then closed with 3-0 Monocryl buried. Any open incisions were closed with 2-0 Vicryl in the dermis and a running 3-0 Monocryl in the skin. Mastisol and Steri-Strips were applied. A sterile dressing and a sling was applied. A sling was placed. The patient was awakened and transferred to the recovery room.
[2020-07-01 10:35] VITALS: BP 100/79
--- NOTE | 2020-07-01 11:02 | ANESTHESIA POST OP EVALUATION ---
Anesthesia Post Eval - Post Anesthesia Eval Vitals: Last Vital Signs Temp 36.2 C L 07/01/20 10:35 Pulse 62 07/01/20 10:35 Resp 15 07/01/20 10:35 BP 100/79 07/01/20 10:35 Pulse Ox 95 07/01/20 10:35 CV Function Including HR & BP: positive: Stable Pain Control: positive: Satisfactory Nausea & Vomiting: positive: Negative Mental Status: positive: Baseline Respiratory Status: Airway Patent Hydration Status: Satisfactory Anesthesia Complications: positive: None
== END 2020-07-01 06:27 | disposition home or self-care (01) ==
LOC: SDS 06:26
PROVIDERS: ATTEND Orthopaedic Surgery
DX: S43.432A Superior glenoid labrum lesion of left shoulder, initial encounter (principal); M75.52 Bursitis of left shoulder; M25.812 Other specified joint disorders, left shoulder; E66.3 Overweight; Z68.29 Body mass index [BMI] 29.0-29.9, adult; G47.30 Sleep apnea, unspecified; M19.012 Primary osteoarthritis, left shoulder
CPT/HCPCS: 29822; 29826; J7120

== ENCOUNTER 2020-10-21 08:40 | Outpatient (CLI) | payer OTHER ==
--- NOTE | 2020-10-21 09:23 | SLEEP CARE CONSULTATION ---
Information from patient questionnaire entered by Elisabeth Michel. I have reviewed and concur with the information entered by Elisabeth Michel. This document represents the service I personally performed and the decisions made by , Argenis Vazquez ARNP. History of Present Illness Service Date and Time: 10/21/2020 0840 Previous diagnosis: Other (RDI ) AHI: 7.3 (in 2019) Reason for follow up: six month Equipment type: CPAP Equipment obtained from: [employer] (getting supplies as needed) Mask style: Nasal Mask brand: [employer]med ([id number]) Backup mask available: Yes (old mask) Last cushion change: 1.5-2 weeks Prior sleep studies: Yes Year and Where: 2019 - [facility] Type of Sleep Study: Polysomnography HPI additional information: MAURILIO MCKEON was diagnosed to have mild, AHI 7.3, Upper Airway Resistance syndrome and returned today for CPAP therapy six month follow-up. CPAP Compliance Data - Data Reviewed with Patient Average duration of nightly device use: 6 hr 4 min Compliance rate %: 80 (last 30)(61 for 180 days) Current pressure setting (cmH2O): 6-8 Humidity settin Average residual AHI: 2.2 Subjective Missed days of use due to: reports: travel (camping trip) Patient concerns: reports: other (occasional snore while using device). denies: aerophagia, mask discomfort, air blowing in eyes, mask leak noise, condensation in mask/hose, nasal congestion, dry mouth, nose, throat, epistaxis Observed to snore while using device: Yes (occasional) Current pressure setting perceived as: comfortable On therapy, patient: reports: sleeping better, awakening more refreshed, being more awake and alert during the day, more rested overall, other (still wakes up several times due to back or shoulder pain). denies: drowsiness while driving Initial [place] Sleepiness Scale score: 16 (in 2019) Current [place] Sleepiness Scale score: 1 Allergies and Home Medications Home medication list reviewed: Yes (no new meds) Review of Systems Review of systems same as previous: Yes (no changes) Physical Exam Heart Rate: 68 O2 Saturation: 98 Height: 6 ft Weight: 209 lb Body Mass Index: 28.3 BMI Classification: Overweight Impression and Plan 1. Upper Airway Resistance Syndrome, mild, with good treatment compliance and good apnea control. On CPAP therapy, the patient has better sleep quality and is more rested overall. Patient is satisfied with his treatment and is doing much better with compliance since he got his new nasal mask, [employer]Med N30i. His occasionally hears a snore coming from him but he states his pressures are comfortable and he feels been getting good results. His occasionally hears a snore coming from him but he states his pressures are comfortable and he feels been getting good results. He does still wake up at night due to back and shoulder pain but nothing to do with his breathing. He does still wake up at night due to back and shoulder pain but nothing to do with his breathing. His [place] sleepiness scale is 05/08 with initial . The sleepiness scale results can be change periodically depending on life stressors, but the current evaluation shows really good improvement from before consistent CPAP use. Patient's apnea severity and rationale for treatment to reduce apnea, improve sleep quality and reduce cardiovascular and cerebrovascular events was reviewed. * Continue auto CPAP pressure at 6-8 cmH2O * Notify me if snoring with mask or feeling that the pressure is too much or too little * Maintain a healthy weight * Call this office if any problems using CPAP * Return for follow up in 1 year, or sooner if concerns arise Counseling Topics: Spare mask, Weight loss health impact Visit Type: In Office Time Spent with Patient (minutes): 18 Provider Statement: I spent 100% of the Face to Face Visit with the patient with greater than 50% spent counseling the patient and coordination of care.
== END 2020-10-21 08:41 | disposition home or self-care (01) ==
LOC: SC 08:40
PROVIDERS: ATTEND Nurse Practitioner Family
DX: G47.8 Other sleep disorders (principal); E66.3 Overweight; Z68.28 Body mass index [BMI] 28.0-28.9, adult
CPT/HCPCS: 99212

== ENCOUNTER 2021-02-17 08:00 | Outpatient (CLI) | payer OTHER | END 2021-02-17 23:59 | disposition home or self-care (01) | LOC: LAB.N 08:00 | PROVIDERS: ATTEND Nurse Practitioner | DX: R05.9 Cough, unspecified (principal); Z20.822 Contact with and (suspected) exposure to COVID-19 ==

== ENCOUNTER 2021-03-20 08:00 | Outpatient (CLI) | payer OTHER ==
--- NOTE | 2021-03-20 16:34 | XRAY Report ---
PROCEDURE: Chest 2 View X-Ray INDICATIONS: COUGH TECHNIQUE: 2 view(s) of the chest. COMPARISON: None. FINDINGS: SUPPORT DEVICES: None. LUNGS/PLEURA: No focal consolidation, pleural effusion or space-occupying pneumothorax. MEDIASTINUM: The cardiomediastinal silhouette is within normal limits. BONES/SOFT TISSUES: No acute abnormality. IMPRESSION: 1.No acute cardiopulmonary abnormality. Reviewed by: Preet Mar MD on 03/20/2021 4:33 PM [facility] Approved by: Preet Mar MD on 03/20/2021 4:33 PM [facility] Station ID: [id number]
== END 2021-03-20 23:59 | disposition home or self-care (01) ==
LOC: DI.N 08:00
PROVIDERS: ATTEND Family Medicine
DX: R05.9 Cough, unspecified (principal)

== ENCOUNTER 2021-03-20 08:00 | Outpatient (CLI) | payer OTHER | END 2021-03-20 23:59 | LOC: LAB.N 08:00 | PROVIDERS: ATTEND Family Medicine | DX: U07.1 COVID-19 (principal); R05.9 Cough, unspecified ==

== ENCOUNTER 2021-07-02 02:43 | Emergency (ER) | payer OTHER ==
--- NOTE | 2021-07-02 02:51 | ED Physician Documentation ---
PD HPI URI - Stated complaint Stated Complaint: SOA, COUGH - History obtained from History obtained from: Patient - History of Present Illness Timing - onset: How many weeks ago (2) Timing duration: Weeks (2) Timing details: Gradual onset, Still present, Waxing and waning Associated symptoms: Nasal congestion, Rhinorrhea, Productive cough, Dyspnea Improves by: MDI/nebulizer Worsened by: Activity Similar symptoms before: Diagnosis (asthma) Recently seen: Not recently seen - Additional information Additional information: 40-year-old male he began to give developed some difficulty breathing in February of last year eventually ended up getting Covid in March and with that illness he did not have much in the way of respiratory symptoms. He has recently been in a crawl space with rat feces and this made the breathing worse. He says that his inhaler did not help much this evening and he has come to the ED for evaluation. He is coughing up some yellow phlem. Review of Systems Constitutional: denies: Fever Eyes: denies: Decreased vision Ears: denies: Ear pain Nose: reports: Rhinorrhea / runny nose, Congestion Throat: denies: Sore throat Cardiac: denies: Chest pain / pressure, Palpitations Respiratory: reports: Dyspnea, Cough, Wheezing GI: denies: Abdominal Pain, Nausea, Vomiting, Diarrhea : denies: Dysuria, Frequency Skin: denies: Rash Musculoskeletal: denies: Neck pain, Back pain, Extremity pain PD PAST MEDICAL HISTORY - Past Medical History Cardiovascular: None Respiratory: Sleep apnea, CPAP use Neuro: None Endocrine/Autoimmune: None GI: None : None HEENT: None Psych: None Musculoskeletal: Other Derm: None - Past Surgical History Ortho: Other - Present Medications Home Medications: Ambulatory Orders Medication Instructions Recorded Confirmed Albuterol Sulf [Ventolin Hfa 1 - 2 puffs INH Q4HR PRN #1 inhaler 07/02/21 Inhaler] Amox/Clav 875/125 [Augmentin] 1 each PO Q12H #20 tablet 07/02/21 predniSONE [Deltasone] 10 mg PO ONCE #26 tablet 07/02/21 - Allergies Allergies/Adverse Reactions: Allergies Allergy/AdvReac Type Severity Reaction Status Date / Time No Known Drug Allergies Allergy Verified 11/13/19 08:06 - Social History Smoking Status: Never smoker PD ED PE NORMAL - Vitals Vital signs reviewed: Yes (tachypneic and hypertensive ) - General General: Alert and oriented X 3, Well developed/nourished - HEENT HEENT: Atraumatic, PERRL, EOMI, Other (The left TM is clear the right is erythematous along the umbo with flattening of the landmark. dry mucous membranes ) - Neck Neck: Supple, no meningeal sign, No bony TTP - Cardiac Cardiac: RRR, No murmur - Respiratory Respiratory: Other (Tachypneic at rest with diminished breath sounds and inspiratory and expiratory wheezes throughout without focal rhonchi.) - Abdomen Abdomen: Soft, Non tender - Back Back: No CVA TTP, No spinal TTP - Derm Derm: Normal color, Warm and dry, No rash - Extremities Extremities: No deformity, No edema - Neuro Neuro: Alert and oriented X 3, telegraphic typewriter mechanic 2-12 intact, No motor deficit, No sensory deficit, Normal speech Eye Opening: Spontaneous Motor: Obeys Commands Verbal: Oriented GCS Score: 15 - Psych Psych: Normal mood, Normal affect Results - Vitals Vitals: Vital Signs - 24 hr 07/02/21 07/02/21 07/02/21 02:45 03:08 03:18 Temperature Heart Rate 87 90 88 Respiratory 26 H 21 13 Rate Blood Pressure 136/87 H 139/96 H O2 Saturation 93 92 07/02/21 07/02/21 03:31 04:19 Temperature 37.2 C Heart Rate 86 Respiratory 20 18 Rate Blood Pressure 137/88 H 140/90 H O2 Saturation 90 L 93 - Rads (name of study) chest Radiology: Prelim report reviewed (Impression: No cardiopulmonary pathology.), EMP read indepedently, See rad report PD MEDICAL DECISION MAKING - ED course Complexity details: reviewed old records, reviewed results, re-evaluated patient, considered differential, d/w patient ED course: 40-year-old male with a history of asthma has exacerbation of his asthma with URI and exposure to rat feces. He is administered dexamethasone here in the [facility] he is given a DuoNeb treatment with improvement he does have otitis on the right side and he is producing some yellow-green phlegm. We will place him on a course of antibiotic short course of the steroid and refill his inhaler. Departure - Departure Disposition: 01 Home, Self Care Clinical Impression: Asthma exacerbation Qualifiers: Asthma severity: moderate Asthma persistence: persistent Qualified Code(s): J45.41 - Moderate persistent asthma with (acute) exacerbation Otitis media Qualifiers: Otitis media type: suppurative Chronicity: acute Laterality: right Recurrence: non-recurrent Spontaneous tympanic membrane rupture: without spontaneous rupture Qualified Code(s): H66.001 - Acute suppurative otitis media without spontaneous rupture of ear drum, right ear Condition: Stable Instructions: Asthma Control, ED Bronchitis Asthmatic, ED Inhaler Use, ED Otitis Media Acute Adult Follow-Up: [facility] [Provider Group] Prescriptions: Albuterol Sulf [Ventolin Hfa Inhaler] 1 - 2 puffs INH Q4HR PRN #1 inhaler PRN Reason: Shortness Of Air/Wheezing Amox/Clav 875/125 [Augmentin] 1 each PO Q12H #20 tablet predniSONE [Deltasone] 10 mg PO ONCE #26 tablet Comments: Hever, today it looks like you have an exacerbation of your asthma related to an upper respiratory infection. We have prescribed some antibiotic Augmentin and a course of prednisone as well as another inhaler. These medications have been E scribed to [facility] in [place]. The expectation is that you will have improvement in your breathing over the next 2 to 3 days and this should improve to the point of not having to use her inhaler. If you continue to have you use your inhaler daily follow-up with your primary about further management of asth ma. There are other medications to use for chronic control. Discharge Date/Time: 07/02/21 04:22
[2021-07-02] MEDS ORDERED: IPRATROPIUM/ALBUTEROL 3 ML NEB INH STA (03:08)
[2021-07-02] MEDS ORDERED: DEXAMETHASONE 10 MG/ML VIAL IVP STA (03:08)
--- OUTSIDE RECORDS SUMMARY | 2021-07-02 03:12 | EXTERNAL MEDICAL SUMMARY RPT | Continuity of Care Document ---
:1980 Author Organization [facility] Address [address] [place] [address] Phone Care Team Providers Name Role Phone PA-C Unavailable Unavailable Allergies No information. Encounters No information. Medications date description facility 20210619 prednisone All Problems date description facility 20210619 Never smoker All 20210619 Details of drug misuse behavior All 20210619 Alcohol use All 20210619 Alcohol intake All 20210619 Acute bronchitis, unspecified All 20210619 Acute bronchitis All Results No information. Vital Signs date measurement value source 20210619 weight_standard 200 lb 20210619 weight_metric 90.72 kg 20210619 temperature_standard 97.9 F 20210619 temperature_metric 36.61 C 20210619 respiration_rate 16 /min 20210619 height_standard 72 in 20210619 height_metric 182.88 cm 20210619 heart_rate 75 /min 20210619 BP_systolic 127 mm[Hg] 20210619 BP_diastolic 88 mm[Hg] 20210619 BMI 27.22 kg/m2
[2021-07-02 04:22] VITALS: BP 140/90
--- NOTE | 2021-07-02 07:54 | XRAY Report ---
PROCEDURE: Chest 1 View X-Ray INDICATIONS: Shortness of breath TECHNIQUE: One view of the chest was acquired. COMPARISON: 03/20/2021 FINDINGS: Surgical changes and devices: None. Lungs and pleura: No pleural effusions or pneumothorax. Lungs are clear. Mediastinum: Mediastinal contours appear normal. Heart size is normal. Bones and chest wall: No suspicious bony lesions. Overlying soft tissues appear unremarkable. IMPRESSION: Normal portable chest. No infiltrates. Note: No significant discrepancy from the preliminary report. Reviewed by: Carter Cho MD on 07/02/2021 6:53 AM [facility] Approved by: Carter Cho MD on 07/02/2021 6:53 AM [facility] Station ID: [id number]
== END 2021-07-02 04:22 | disposition home or self-care (01) ==
LOC: ED 02:43
DX: J45.41 Moderate persistent asthma with (acute) exacerbation (principal); H66.001 Acute suppurative otitis media without spontaneous rupture of ear drum, right ear; Z20.822 Contact with and (suspected) exposure to COVID-19
CPT/HCPCS: 36415; 94640; 94664; 96374; 99283